=== PATIENT | male | born 1960 | race Caucasian/White ===

== ENCOUNTER → 2024-03-13 | Outpatient (REF) | payer BC | LOC: M SMT 12:22 | PROVIDERS: ATTEND Urology | DX: N50.89 Other specified disorders of the male genital organs (principal) ==

== ENCOUNTER → 2024-03-21 | Outpatient (REF) | payer BC ==
[2024-03-24 06:33] LABS: PROTEIN, TOTAL SO 7.8 g/dL (6.1-8.1)
[2024-03-26 06:33] LABS: ALBUMIN SO 3.7 g/dL (3.8-4.8); ALPHA 1 GLOBULINS SO 0.4 g/dL (0.2-0.3); ALPHA 2 GLOBULINS SO 0.8 g/dL (0.5-0.9); BETA 2 GLOBULIN SO 0.5 g/dL (0.2-0.5); BETA GLOBULIN SO 0.5 g/dL (0.4-0.6); GAMMA GLOBULINS SO 1.9 g/dL (0.8-1.7)
== END ==
LOC: M LAB REF 17:19
PROVIDERS: ATTEND Internal Medicine Nephrology
DX: N18.32 Chronic kidney disease, stage 3b (principal)

== ENCOUNTER 2024-04-29 06:03 | Day surgery (SDC) | payer BC ==
[~2024-04-29] VITALS: Ht 177.8 cm; Wt 84.1 kg
[~2024-04-29 06:03] MED LIST: ASPI325T57 PO; ATOR1TAB21 PO; DILT120C89 PO; FAMO20TA5 PO; HYDR12CA PO; LOSA50TA28 PO; MELO7.5T35 PO
[2024-04-29] MEDS ORDERED: LR 1,000 ML IV SCH ×2 (06:10→08:25)
[2024-04-29] MEDS ORDERED: BACITRACIN OINTMENT 30GM TUBE As Ordered ONE (07:11)
[2024-04-29] MEDS ORDERED: propofoL 200 MG/20 ML VIAL As Ordered ONE (07:16)
[2024-04-29] MEDS ORDERED: ONDANSETRON 4MG 2ML VIAL As Ordered ONE (07:16)
[2024-04-29] MEDS ORDERED: SUGAMMADEX SODIUM 500 MG/5 ML VIAL (BRIDION) As Ordered ONE (07:16)
[2024-04-29] MEDS ORDERED: ROCURONIUM BROMIDE 50MG/5ML VIAL As Ordered ONE (07:16)
[2024-04-29] MEDS ORDERED: MIDAZOLAM INJ 2MG/2ML VIAL As Ordered ONE (07:17)
[2024-04-29] MEDS ORDERED: fentaNYL 100 MCG/2 ML INJECTION As Ordered ONE (07:17)
[2024-04-29] MEDS: ceFAZolin SOD 2 GM in IV 1 EA IV ONE (07:33)
[2024-04-29] MEDS ORDERED: GLYCOPYRROLATE INJ 0.2 MG/ML 2 ML VIAL As Ordered ONE (07:48)
[2024-04-29] MEDS ORDERED: KETOROLAC 60MG 2ML VIAL As Ordered ONE (07:52)
[2024-04-29] MEDS: LIDOCAINE 1% SDV 30ML VIAL As Ordered ONE (07:56)
[2024-04-29] MEDS ORDERED: fentaNYL 100 MCG/2 ML INJECTION IV PRN (08:25)
[2024-04-29] MEDS ORDERED: ONDANSETRON 4MG 2ML VIAL IV PRN (08:25)
[2024-04-29] MEDS ORDERED: ACETAMINOPHEN 1000MG 100ML IV BAG As Ordered ONE (08:27)
[2024-04-29] MEDS ORDERED: HYDR-3713 PO (08:34)
[2024-04-29] MEDS ORDERED: CEPH500C PO (08:34)
[2024-04-29] MEDS ORDERED: oxyCODONE 5MG TAB PO PRN (09:30)
[2024-04-29] MEDS: MORPHINE 2 MG/ML 1ML VIAL IV PRN (09:48)
[2024-04-29 10:53] VITALS: BP 165/82; TEMP 96.8; O2SAT 100
== END 2024-04-29 11:00 | disposition home or self-care (01) ==
LOC: M SDC 06:03
PROVIDERS: ATTEND Urology
DX: N43.3 Hydrocele, unspecified (principal); I10 Essential (primary) hypertension; I48.0 Paroxysmal atrial fibrillation; I34.89 Other nonrheumatic mitral valve disorders; E78.00 Pure hypercholesterolemia, unspecified; Z79.82 Long term (current) use of aspirin; Z79.899 Other long term (current) drug therapy; K21.9 Gastro-esophageal reflux disease without esophagitis; Z88.5 Allergy status to narcotic agent; F17.220 Nicotine dependence, chewing tobacco, uncomplicated
CPT/HCPCS: 54640; 55040; 88302; J0131; J0690; J1100; J1596; J1885; J2250; J2405; J3010

== ENCOUNTER → 2024-05-21 | Outpatient (REF) | payer BC ==
[~2024-05-21] MED LIST changes: +CEPH500C PO; +HYDR-3713 PO
[2024-05-21 16:19] LABS: APPEARANCE, URINE CLEAR (CLEAR); BACTERIA, URINE AUTO NEGATIVE (NEGATIVE); BILIRUBIN, URINE AUTO NEGATIVE (NEGATIVE); BLOOD, URINE BLOOD NEGATIVE (NEGATIVE); COLOR, URINE YELLOW (YELLOW); GLUCOSE, URINE (UA) AUTO NEGATIVE (NEGATIVE); KETONE, URINE AUTO NEGATIVE (NEGATIVE); LEUKOCYTE ESTERASE, URINE AUTO NEGATIVE (NEGATIVE); MUCUS, URINE SMALL (NEGATIVE); NITRITE, URINE AUTO NEGATIVE (NEGATIVE); PROTEIN, URINE AUTO NEGATIVE (NEGATIVE); RBC, URINE AUTO 0 /HPF (0-3); SPECIFIC GRAVITY URINE AUTO 1.019 (1.002-1.035); SQUAMOUS EPITHELIAL CELL UR AU 0 /HPF (0-6); UROBILINOGEN, URINE AUTO 0.2 mg/dL (0.0-2.0); WBC, URINE AUTO 0 /HPF (0-3)
== END ==
LOC: M LAB REF 15:10
PROVIDERS: ATTEND Physician Assistant
DX: R31.21 Asymptomatic microscopic hematuria (principal)

== ENCOUNTER → 2024-06-21 | Outpatient (REF) | payer BC ==
[2024-06-26 09:32] LABS: PROTEIN, TOTAL SO 7.8 g/dL (6.1-8.1)
[2024-06-26 19:58] LABS: ALBUMIN SO 3.8 g/dL (3.8-4.8); ALPHA 1 GLOBULINS SO 0.3 g/dL (0.2-0.3); ALPHA 2 GLOBULINS SO 0.8 g/dL (0.5-0.9); BETA 2 GLOBULIN SO 0.5 g/dL (0.2-0.5); BETA GLOBULIN SO 0.5 g/dL (0.4-0.6); GAMMA GLOBULINS SO 1.8 g/dL (0.8-1.7)
== END ==
LOC: M LAB REF 17:20
PROVIDERS: ATTEND Internal Medicine Nephrology
DX: D47.2 Monoclonal gammopathy (principal)